=== PATIENT | male | born 1950 | race Caucasian/White ===

== ENCOUNTER → 2016-09-04 | Day surgery (SDC) | payer OTHER ==
[~2016-09-04] MED LIST: ALBUTEROL17 GM INH; AMLODIPINE BESIL1 GM PO; ASPIRIN81 M2 PO; CIPRO PO; COUMADIN PO; COUMADIN2.5 MG; COUMADIN7.5 MG PO; CYMBALTA PO; DULOXETINE HCL60 MG PO; LEVOFLOXACIN500 MG PO; LIPITOR40 MG DOB; LIPITOR40 MG PO; METOPROLOL TAR25 MG PO; MONTELUKAST SOD10 MG PO; NEXIUM PO; NORVASC PO; NORVASC10 MG PO; OMEPRAZOLE40 M1 PO; OMEPRAZOLE40 MG PO; PERCOCET5/325 PO; PRILOSEC40 MG PO; PROAIR HFA8.5 GM IH; SINGULAIR PO; TYLOX 5/500 CAP1 CAP PO; VICOPROFEN 200-1 TAB PO; WARFARIN SODIU7.5 MG PO; ZOCOR PO; ZOLOFT PO
--- NOTE | ~2016-09-04 | OR ---
Unit #: [id number] #: [id number] Patient: FADI MCKINNEY [id number] [address] [place], [place] [address] [id number] O MR#: [id number] NAME: FADI MCKINNEY. ROOM: Date of Procedure: 09/04/2016 Admission Date: 09/04/2016 Surgeon: Jose Mckeon M.D. : 1950 Attending Physician: Jose Mckeon M.D. Primary Care Physician: Tiffanie Hays M.D. OPERATIVE REPORT PREOPERATIVE DIAGNOSES 1. Change in bowel habits. 2. Abdominal pressure. POSTOPERATIVE DIAGNOSES 1. Change in bowel habits. 2. Abdominal pressure. PROCEDURES PERFORMED 1. Colonoscopy to anastomosis (hepatic flexure). 2. Polypectomy with electrocautery snare at 25 cm. ANESTHESIA Monitored anesthesia care. FINDINGS The patient was found to have occasional sigmoid diverticulum. Normal anastomosis. Mild internal hemorrhoids and a 7 mm polyp excised at 25 cm with good hemostasis. SPECIMENS Sent to pathology. COMPLICATIONS None apparent. CONDITION The patient tolerated the procedure well. 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 He presents at this time with the complaint of change in bowel habits with increasing constipation and narrow stools as well as abdominal pressure and discomfort. He presents at this time for evaluation by colonoscopy. DESCRIPTION OF PROCEDURE After obtaining informed consent, the patient was brought to the endoscopy suite and after adequate monitored anesthesia care, had the colonoscope placed through the anus and slowly advanced to the level of the anastomosis without difficulty with the lumen always in view. This was in the area of the hepatic flexure. The anastomosis was widely patent and Unit #: [id number] #: [id number] Patient: FADI MCKINNEY was normal in appearance. The transverse colon was normal as was the splenic flexure and descending colon. In the sigmoid colon, had a few scattered diverticula present. A small 6 to 7 mm polyp was found. It was excised completely with electrocautery snare with good hemostasis, retrieved with the mucus trap and sent to pathology. The remaining portion of the sigmoid colon, rectosigmoid, and rectum were all within normal limits. On retroflexing in the rectum to the anorectal junction, the patient was found to have some mild internal hemorrhoids. The scope was removed without difficulty. The patient tolerated the procedure well and went from the endoscopy suite to the recovery area in stable condition. RECOMMENDATIONS Call Friday for pathology. Diverticular sheet given. High-fiber diet, lots of liquids, tucks or wipes p.r.n. My office will call and schedule a CT scan of the abdomen and pelvis. Dictated by... Emilie Cloud/xiang TD: 09/04/2016 23:50 JOB #: [id number] CC: [facility] OPERATIVE REPORT Page 1 of 1 X Jose Mckeon MD X PROCEDURE OPERATIVE NOTE
== END | disposition home or self-care (01) ==
LOC: COPS 08:41
DX: D12.6 Benign neoplasm of colon, unspecified (principal); K57.30 Diverticulosis of large intestine without perforation or abscess without bleeding; K64.8 Other hemorrhoids; J44.9 Chronic obstructive pulmonary disease, unspecified; I25.10 Atherosclerotic heart disease of native coronary artery without angina pectoris; I71.9 Aortic aneurysm of unspecified site, without rupture; I48.91 Unspecified atrial fibrillation; E78.5 Hyperlipidemia, unspecified; I10 Essential (primary) hypertension; E55.9 Vitamin D deficiency, unspecified; F17.210 Nicotine dependence, cigarettes, uncomplicated; E11.9 Type 2 diabetes mellitus without complications; Z95.5 Presence of coronary angioplasty implant and graft; Z87.19 Personal history of other diseases of the digestive system; Z90.49 Acquired absence of other specified parts of digestive tract; Z86.73 Personal history of transient ischemic attack (TIA), and cerebral infarction without residual deficits; Z88.8 Allergy status to other drugs, medicaments and biological substances; Z79.82 Long term (current) use of aspirin; Z79.01 Long term (current) use of anticoagulants; Z79.899 Other long term (current) drug therapy; Z80.0 Family history of malignant neoplasm of digestive organs
CPT/HCPCS: 88305; J2250

== ENCOUNTER → 2016-09-06 | Outpatient (CLI) | payer OTHER ==
--- NOTE | ~2016-09-06 | CT2 ---
[facility] A Service of [facility] RADIOLOGY TEXT RESULTS PATIENT: FADI MCKINNEY LOCATION: [facility] : 50 UNIT #: [id number] AGE: [address]: Jose Mckeon MD SEX: M ORDER DR: [id number] [facility] [address] [place], [place] [address] [id number] O MR#: [id number] [facility] #: [id number] NAME: FADI MCKINNEY : 1950 SEX: M STUDY DATE/TIME: 09/06/2016 13:06 UNIT: [facility] ROOM: STUDY DESCRIPTION: CT Abd and Pelv W Cont Attending Physician: Jose Mckeon M.D. Referring Physician: Jose Mckeon M.D. Ordering Physician: Jose Mckeon M.D. Primary Care Physician: Tiffanie Hays M.D. MEDICAL IMAGING REPORT This report is preliminary unless electronic signature is present EXAM CT of the abdomen and pelvis with contrast INDICATION Bilateral lower abdominal pain for 10 days and constipation. TECHNIQUE [address] of the abdomen and pelvis was performed following the administration of oral and IV contrast. Coronal and sagittal reformatted images were obtained. This CT exam was performed with one or more of the following radiation dose reduction techniques: automatic exposure control, adjustment of mA and/or kV according to patient size, and iterative reconstruction. COMPARISON 07/06/2015 FINDINGS There is some mild scarring in the lung bases. There is a calcified pleural plaque in the left base. The liver and gallbladder are both unremarkable. The spleen is unremarkable. The kidneys and adrenal glands and pancreas are unremarkable. There is a infrarenal abdominal aortic aneurysm measuring about 3.2 cm in greatest AP dimension. This is slightly enlarged from the prior study where it measured about 2.0 cm. There is a very tiny ventral abdominal wall hernia containing only fat. There appears to have been prior mesh repair of the larger hernia. PELVIS: There are postsurgical change of the cecum. There is no free fluid. Remainder of the pelvis is unremarkable. The bone windows are [facility] A Service of [facility] RADIOLOGY TEXT RESULTS PATIENT: FADI MCKINNEY LOCATION: [facility] : 50 UNIT #: [id number] AGE: [address]: Jose Mckeon MD SEX: M ORDER DR: unremarkable. IMPRESSION 1. There are no CT findings to explain the patient's symptoms. 2. There is an infrarenal abdominal aortic aneurysm which is minimally increased in size now measuring 3.2 cm in greatest AP dimension. Previously it was 3.0 cm. 3. Additional findings as described. Dictated by... Santos Aguirre M.D. THIS IS AN ELECTRONICALLY VERIFIED REPORT Santos Aguirre M.D. at 09/06/2016 4:43 PM Sis TD: 09/06/2016 14:56 JOB #: [id number] MEDICAL IMAGING REPORT Page 1 of 1 COPY
[2016-09-06 13:06] LABS: POC - CREATININE 1.07 mg/dL (0.64-1.27); POC - GFR >60.0 mL/min (>60)
== END | disposition home or self-care (01) ==
LOC: CCAT 11:38
PROVIDERS: Surgery
DX: R10.9 Unspecified abdominal pain (principal); I71.4 Abdominal aortic aneurysm, without rupture
CPT/HCPCS: 74177; 82565; Q9967

== ENCOUNTER 2016-11-23 10:51 | Emergency (ER) | payer OTHER ==
--- NOTE | ~2016-11-23 | CT4 ---
[facility] A Service of [facility] & [facility] RADIOLOGY TEXT RESULTS PATIENT: FADI MCKINNEY LOCATION: [facility] : 50 UNIT #: [id number] AGE: [address]: Komal Layne APRN SEX: M ORDER DR: [id number] [facility] [address] [place], [place] [address] [id number] E MR#: [id number] Acc #: [id number] NAME: FADI MCKINNEY. : 1950 SEX: M STUDY DATE/TIME: 11/23/2016 12:10 UNIT: [facility] ROOM: STUDY DESCRIPTION: CT Abd and Pelv Wo Cont Attending Physician: Komal Layne A.P.R.N. Ordering Physician: Ed Doctor [id number] [facility] Primary Care Physician: Tiffanie Hays M.D. MEDICAL IMAGING REPORT This report is preliminary unless electronic signature is present EXAM CT abdomen and pelvis, noncontrast, kidney stone protocol, 11/23/2016 HISTORY 66-year-old male in the ED complaining of 2-day history of right flank pain. He notes a history of kidney stones. TECHNIQUE CT examination of the abdomen and pelvis without oral or IV contrast using kidney stone protocol. This CT exam was performed with one or more of the following radiation dose reduction techniques: automatic control, adjustment of mA and/or kV according to patient size, and iterative reconstruction. COMPARISON CT abdomen/pelvis, 09/06/2016. FINDINGS ABDOMEN FINDINGS: Both kidneys, both ureters and the urinary bladder are normal in noncontrast CT appearance. No visible nephrolithiasis. No evidence of urinary obstruction. Postop changes right hemicolectomy. Mild sigmoid diverticulosis. Small bowel and colon are otherwise within normal limits as imaged. Liver, pancreas and spleen are normal in size and appearance. Nondistended gallbladder. No bile duct dilatation. Benign diverticulum second portion of duodenum. Mild focal aneurysmal dilatation of the infrarenal abdominal aorta measuring up to 3.2 cm, is unchanged since the prior study. No periaortic fluid collection. Postop changes mesh graft repair anterior midline abdominal wall hernia. [facility] A Service of [facility] & [facility] RADIOLOGY TEXT RESULTS PATIENT: FADI MCKINNEY LOCATION: [facility] : 50 UNIT #: [id number] AGE: [address]: Komal Layne [employer]ICK[employer] SEX: M ORDER DR: Bladder, prostate and rectum are within normal limits. No inguinal hernia. Lung base images showing scattered pulmonary scarring with mild bronchiectasis in the left base. IMPRESSION 1. No acute abnormality within the abdomen or pelvis. No visible nephrolithiasis or evidence of urinary obstruction. 2. Postop changes right hemicolectomy. 3. Previous mesh graft repair midline anterior abdominal wall hernia. 4. Mild diverticulosis. 5. Stable mild focal aneurysmal dilatation infrarenal abdominal aorta measuring up to 3.2 cm, unchanged since 09/06/2016. 6. Mild left basilar scarring and mild bronchiectasis in the left lower lobe. Dictated by... Ba Barron M.D. THIS IS AN ELECTRONICALLY VERIFIED REPORT Ba Barron M.D. at 11/24/2016 12:51 PM HEMA/irma TD: 11/23/2016 22:47 JOB #: [id number] MEDICAL IMAGING REPORT Page 1 of 1 COPY
[2016-11-23 12:07] LABS: BASOPHIL# 0.1 X10e3 (0-0.3); BASOPHIL% 0.9 % (0-2.5); DIFF IND NO; EOSINOPHIL# 0.1 X10e3 (0-0.7); EOSINOPHIL% 1.2 % (0.0-7.0); HEMATOCRIT 40.7 % (38.0-50.0); HEMOGLOBIN 13.5 gm/dL (13.0-16.0); LYMPHOCYTE# 2.8 X10e3 (1.0-3.5); LYMPHOCYTE% 36.8 % (17.0-45.0); MEAN CELL VOLUME 97.8 FL (83-96); MEAN CORPUSCULAR HEMOGLOBIN 32.5 PG (28-34); MEAN CORPUSCULAR HGB CONC 33.2 g/dL (30-36); MEAN PLATELET VOLUME 7.3 FL (6.5-11.5); MONOCYTE# 0.7 X10e3 (0-1.0); MONOCYTE% 8.9 % (3.0-12.0); NEUTROPHIL% 52.2 % (40-75); PLATELET COUNT 165 X10e3 (140-420); RED BLOOD COUNT 4.16 X10e (3.90-5.60); RED CELL DISTRIBUTION WIDTH 15.9 % (11.0-15.5); WHITE BLOOD COUNT 7.6 X10e3 (4.0-10.5)
[2016-11-23 12:15] LABS: INR 2.5; PROTHROMBIN TIME (PATIENT) 27.5 SECONDS (10.0-11.7)
[2016-11-23 12:29] LABS: ALBUMIN SERUM 3.8 g/dL (3.5-5.0); BILIRUBIN,TOTAL 0.6 mg/dL (0.2-2.0); BUN/CREATININE RATIO 18.75; CALCIUM SERUM 8.5 mg/dL (8.4-10.2); CREATININE SERUM 0.8 mg/dL (0.6-1.4); GLOM FILT RATE Estimated 93.1 mL/min (>60); POTASSIUM 3.6 mmol/L (3.5-5.1); PROTEIN TOTAL SERUM 7.1 g/dL (6.0-8.3)
[2016-11-23 14:05] LABS: URINE SOURCE CLEAN CATCH
[2016-11-23 14:17] LABS: URINE APPEARANCE CLEAR; URINE BILIRUBIN NEG (NEG); URINE BLOOD NEG (NEG); URINE COLOR YELLOW; URINE GLUCOSE NEG (NEG); URINE KETONE NEG (NEG); URINE LEUKOCYTE ESTERASE NEG (NEG); URINE NITRATE NEG (NEG); URINE PROTEIN NEG (NEG); URINE UROBILINOGEN 0.2 MG/DL (NEG)
[2016-11-23 14:59] LABS: CULTURE INDICATED? NO
== END 2016-11-23 13:30 | disposition home or self-care (01) ==
LOC: CFTX 10:51 → CED 10:51 → CFTX 11:27
PROVIDERS: Nurse Practitioner
DX: M54.5 Low back pain (principal); I10 Essential (primary) hypertension; F17.210 Nicotine dependence, cigarettes, uncomplicated; Z86.73 Personal history of transient ischemic attack (TIA), and cerebral infarction without residual deficits; Z86.718 Personal history of other venous thrombosis and embolism; Z87.442 Personal history of urinary calculi; Z88.8 Allergy status to other drugs, medicaments and biological substances; X58.XXXA Exposure to other specified factors, initial encounter; Y92.9 Unspecified place or not applicable
CPT/HCPCS: 36415; 74176; 80053; 81003; 85025; 85610; 96372; 99284; J2270

== ENCOUNTER → 2017-01-17 | Outpatient (CLI) | payer OTHER ==
--- NOTE | ~2017-01-17 | MR113 ---
[facility] A Service of [facility] RADIOLOGY TEXT RESULTS PATIENT: FADI MCKINNEY [facility] : 50 UNIT #: [id number] AGE: [address]: Maria Guadalupe Naylor APRN SEX: M ORDER DR: [id number] [facility] [address] [place], [place] [address] [id number] O MR#: [id number] Acc #: [id number] NAME: FADI MCKINNEY : 1950 SEX: M STUDY DATE/TIME: 01/17/2017 7:06 UNIT: [facility] ROOM: STUDY DESCRIPTION: MR Lumbar Wo Contrast Attending Physician: Maria Guadalupe Naylor A.P.R.N. Referring Physician: Maria Guadalupe Naylor A.P.R.N. Ordering Physician: Maria Guadalupe Naylor A.P.R.N. Primary Care Physician: Maria Guadalupe Naylor A.P.R.N. MRI CENTER REPORT This report is preliminary unless electronic signature is present. EXAM MRI of the lumbar spine without contrast dated 01/17/2017 COMPARISON Plain films lumbar spine dated 12/24/2016 HISTORY Low back pain, right hip pain and right groin pain for 2 months. FINDINGS Multisequence multiplanar imaging of the lumbar spine was obtained without contrast. There is a chronic-appearing Schmorl's node noted along the endplate particularly at L5. Associated mild vertebral body height loss is noted related to the endplates in the vertebral bodies without any significant acute compression fracture or subluxation. Degenerative disc disease is noted at multiple levels. There is suspicious pars defect in the left. Well-defined pars defect is not seen in the right. This was also seen in the CT abdomen and pelvis dated 11/23/2016. Conus terminates at T12-L1. Signal of conus and cauda equina are within normal limits. Degenerative disc signal loss is at L4-5 and L5-S1. Pre and paravertebral soft tissues do not demonstrate any significant abnormality. Edema is noted within the subcutaneous soft tissue of the lower lumbar spine. Retroperitoneum is unremarkable. L1-2: Minimal facet change but otherwise unremarkable. L2-3: Mild disc bulge with moderate bilateral facet hypertrophic changes. Borderline size to mild canal stenosis. Mild inferior bilateral neural foraminal encroachment. L3-4: Concentric disc bulge with superimposed left foraminal to extraforaminal broad-based protrusion. Mild bilateral facet changes are noted with borderline size to mild canal stenosis. Mild inferior left neural foraminal narrowing is seen. [facility] A Service of [facility] RADIOLOGY TEXT RESULTS PATIENT: FADI MCKINNEY LOCATION: [facility] : 50 UNIT #: [id number] AGE: [address]: Maria Guadalupe Naylor APRN SEX: M ORDER DR: L4-5: Disc osteophyte complex is seen with moderate canal stenosis. Mild bilateral facet hypertrophic changes are noted with [id number] bilateral lateral recess stenosis and mild bilateral neural foraminal narrowing. L5-S1: Disc osteophyte complex with no canal stenosis. Mild inferior bilateral neural foraminal encroachment is seen. IMPRESSION 1. Degenerative changes are noted at multiple levels, relatively worse at L4-5 with [id number] canal stenosis. Bilateral lateral recess stenosis and neural foraminal narrowing are also seen, mild. 2. There appears to be left pars defect at L5 without well-defined pars defect on the right. It was also noted in the CT abdomen pelvis dated 11/23/2016. 3. Conus and cauda equina are unremarkable. 4. No acute fracture, subluxation, destructive bony mass or bone edema. Dictated by... Edelmira Escobedo M.D. THIS IS AN ELECTRONICALLY VERIFIED REPORT Edelmira Escobedo M.D. at 01/17/2017 5:25 PM CPR/dawood TD: 01/17/2017 08:46 JOB #: [id number] MRI CENTER REPORT Page 1 of 1 COPY
== END | disposition home or self-care (01) ==
LOC: CMRI 01-15 08:00
DX: M54.5 Low back pain (principal); M48.06 Spinal stenosis, lumbar region; M99.83 Other biomechanical lesions of lumbar region; M47.896 Other spondylosis, lumbar region
CPT/HCPCS: 72148